=== PATIENT | female | born 1980 | race Caucasian/White ===

== ENCOUNTER → 2019-03-26 | Outpatient (CLI) | payer OTHER ==
--- NOTE | 2019-03-26 11:34 | XR ---
Left hand and left wrist HISTORY: Synovitis, Chelo synovitis, pain 3 views of the left hand and 4 views of the left wrist Bone mineralization, joint spaces and alignment are maintained. IMPRESSION: No fracture or dislocation of the left hand or left wrist.
== END | disposition home or self-care (01) ==
LOC: RADXRMAIN 11:00
PROVIDERS: ATTEND Emergency Medicine
DX: M65.842 Other synovitis and tenosynovitis, left hand (principal); R20.9 Unspecified disturbances of skin sensation

== ENCOUNTER → 2019-08-10 | Outpatient (CLI) | payer OTHER ==
--- NOTE | 2019-08-10 22:21 | FL ---
EXAMINATION TYPE: Left wrist fluoroscopic-guided arthrogram injection. DATE OF EXAM: 08/10/2019 HISTORY: 38-year-old female synovitis and tenosynovitis left hand. Left wrist pain from repetitive mo tion at work. PROCEDURES: 1. Left wrist fluoroscopy. 2. Left wrist arthrogram. Total images: None. Real-time fluoroscopy was utilized. Total fluoroscopy time: 58 seconds. TECHNIQUE: The procedure, risks, and alternatives, were discussed with the patient, who requested that shruthi graham. The consent form was signed, and teach-back occurred. The site/side of the procedure was marked with a line with participation by the patient. The accompan preston paperwork was verified for consistency. A directed history and physical exam was performed prior to the procedure. A critical pause was perfo rmed with assisting personnel just prior to the procedure, and the patient's identity was confirmed u sing 2 identifiers. Imaging guidance was utilized to select the precise skin entry point just prior to the procedure. The left wrist was prepped and draped in the usual sterile fashion and local 1% lidocaine anesthesia was instilled. Under fluoroscopic guidance, a 25 gauge 1 1/2 inch needle was introduced into the oleg pasquale radioscaphoid joint. Appropriate needle tip position was confirmed after a small amount of contra st injection. Approximately 3 ml of a mixture of Isovue-300 iodinated contrast, sterile saline, and Gadavist was in jected into the left wrist joint. The needle was then removed. The patient tolerated the procedure we ll. There was no immediate complication. After the procedure, the patient's condition was unchanged. Estimated blood loss was minimal. IMPRESSION: Technically successful left wrist arthrogram injection for MRI. No immediate complication. Patient co unseled on routine postprocedure precautions including monitoring for signs of infection.
--- NOTE | 2019-08-11 05:33 | MR ---
EXAMINATION TYPE: MR wrist arthrogram LT w con DATE OF EXAM: 08/10/2019 COMPARISON: NONE HISTORY: 38-year-old female Synovitis and tenosynovitis, left hand Technique: Multiplanar, multisequence images of the left wrist were obtained after intra-articular ad ministration of a gadolinium mixture. Refer to arthrogram report of the same day for further details. FINDINGS: There is adequate contrast distention of the wrist joint with some decompression of contrast along th e both medial and lateral aspects of the wrist wrist. There is no extension of contrast into the mid carpal compartment to suggest disruption of either sca pholunate or lunotriquetral ligaments. No bone marrow edema or evidence for acute or healing fracture. There is minimal subchondral bony irregularity along the dorsal mid lunate articular surface at the r adiocarpal joint, refer to coronal image 8. Again, no associated marrow edema. No abnormal extension of contrast into the distal radioulnar joint or trace distal radioulnar joint e ffusion is demonstrated. The central disc of the TFC remains intact but there is heterogeneity and thickening of the ulnar-jeremy ed limbs of the TFC and additional thickening and heterogeneity of the ulnomeniscal homologue. For ex ample, refer to coronal series 501 image 8. Axial series shows trace synovial thickening along the ECU with an intrasubstance tear at the level o f the distal ulna. No evident disruption of the ECU subsheath. Some iatrogenic contrast is noted along the second and third dorsal compartments. The dorsal extenso r and volar flexor tendons are otherwise within normal limits. Overall cartilage is maintained without evidence for bony erosions. Median nerve is normal caliber. IMPRESSION: 1. Thickening and heterogeneity of the ulnar-sided limbs/lamina of the TFC suggesting high-grade part ial tears. No ericka extension of contrast into the distal radioulnar joint to indicate a through thic kness tear. 2. Small intrasubstance tear involving the ECU. 3. Small chronic osteochondral lesion along the dorsal proximal lunate articular surface.
== END | disposition home or self-care (01) ==
LOC: RADFLMAIN 13:05
PROVIDERS: ATTEND Emergency Medicine
DX: M65.842 Other synovitis and tenosynovitis, left hand (principal); R20.9 Unspecified disturbances of skin sensation
CPT/HCPCS: 25246; 73115; 73222; A9585; Q9967

== ENCOUNTER → 2020-09-05 | Outpatient (CLI) | payer OTHER ==
--- NOTE | 2020-09-06 20:30 | CT ---
EXAMINATION TYPE: CT upper ext BILAT wo contrast DATE OF EXAM: 09/05/2020 COMPARISON: None HISTORY: Pain in LT wrist. Synovitis and tenosynovitis. Post LT unlar shortening osteotomy 05/05/2020. LT sx metal visible in image CT DLP: 197.40 mGycm Automated exposure control for dose reduction was used. FINDINGS: Bilateral upper extremities are examined in the axial plane at 3 mm thick sections. Reconstructed cherry ges in the coronal and sagittal plane are reviewed. Three-D reconstructed images performed separately on the computer by the technologist are present. Plate and screws are along the medial aspect of the left ulna. The osteotomy within the ulna is not i dentified. No new fractures are evident. In the lateral projection the bilateral ulna may be somewhat elevated in relation to the radius. This may be positional. IMPRESSION: NO SUSPICIOUS ACUTE CHANGES POST OSTEOTOMY LEFT ULNA.
== END | disposition home or self-care (01) ==
LOC: RADCTMAIN 15:33
PROVIDERS: ATTEND Orthopaedic Surgery Hand Surgery
DX: M25.532 Pain in left wrist (principal); M24.232 Disorder of ligament, left wrist; M65.832 Other synovitis and tenosynovitis, left forearm; M24.132 Other articular cartilage disorders, left wrist; Z47.89 Encounter for other orthopedic aftercare; Z98.890 Other specified postprocedural states

== ENCOUNTER → 2021-09-12 | Outpatient (CLI) | payer OTHER ==
--- NOTE | 2021-09-13 09:04 | MM ---
Reason for exam: screening (asymptomatic). Baseline mammogram. Physical Findings: Nurse did not find any significant physical abnormalities on exam. MG Screening Mammo w CAD Bilateral CC and MLO view(s) were taken. The breast tissue is heterogeneously dense. This may lower the sensitivity of mammography. There is no discrete abnormality. ASSESSMENT: Benign, BI-RAD 2 RECOMMENDATION: Routine screening mammogram of both breasts in 1 year.
== END | disposition home or self-care (01) ==
LOC: RADMAMWWP 14:08
PROVIDERS: ATTEND Family Medicine
DX: Z12.31 Encounter for screening mammogram for malignant neoplasm of breast (principal)
CPT/HCPCS: 77067